=== PATIENT | female | born 1960 | race American Indian/Alaskan Native ===

== ENCOUNTER 2017-04-25 10:41 | Outpatient (CLI) | payer OTHER ==
--- NOTE | 2017-04-25 13:10 | Ultrasound Report ---
RIGHT BREAST ULTRASOUND: 04/25/17 10:41:00 CLINICAL: Mammographic asymmetry. COMPARISON: 03/28/17 mammograms from [facility], [place], [place] FINDINGS: Ultrasound of the inner right breast was performed and demonstrated normal fibroglandular structures with no mass, cyst or shadowing. Moderate retroareolar ductal ectasia with no intraductal mass is identified. IMPRESSION: Negative right breast ultrasound with benign duct ectasia.Duct ectasia correlates with a persistent asymmetry near the nipple on the most recent mammogram. No finding to correlate with a probably benign asymmetry 10 cm from the nipple on the initial mammogram. BI-RADS 3 - - Probably Benign RECOMMENDATION: Six month followup right mammogram.
== END 2017-04-25 10:42 | disposition home or self-care (01) ==
LOC: SPVWC 10:41
PROVIDERS: ATTEND Surgery
DX: N60.41 Mammary duct ectasia of right breast (principal)